=== PATIENT | male | born 2000 ===

== ENCOUNTER → 2020-10-29 | Emergency (ER) | payer OTHER ==
[~2020-10-29] VITALS: Ht 180.3 cm; Wt 120.2 kg
[~2020-10-29] MED LIST: ACETAMINOPHEN650 M2 PO; AZITHROMYCIN500 MG PO; INTESTINEX680 M2 PO; MELATONIN10 M2 PO; MUCINEX DM ER1 EAC1 PO
== END | disposition home or self-care (01) ==
LOC: ER 19:07
DX: U07.1 COVID-19 (principal)

== ENCOUNTER 2021-09-21 08:39 | Emergency (ER) | payer OTHER ==
[~2021-09-21] VITALS: Ht 175.3 cm; Wt 101.2 kg
== END 2021-09-21 13:29 | disposition home or self-care (01) ==
LOC: ER 08:39
DX: R51.9 Headache, unspecified (principal); Z20.822 Contact with and (suspected) exposure to COVID-19